=== PATIENT | female | born 1970 | race Caucasian/White ===

== ENCOUNTER 2019-09-23 01:44 | Day surgery (SDC) | payer OTHER, SELFPAY ==
[2019-09-16 14:43] VITALS: BMI 26.6
--- NOTE | 2019-09-23 07:33 | PM.HPGS ---
History of Present Illness History of Present Illness Consent: Risks, benefits, and alternatives have been discussed and questions answered. Patient agrees to proceed with procedure. Chief complaint: abn uterine bleeding, prolapsed fibroid Narrative: Rachelle Caceres is a 49 year old female with prolonged episodes of spotting. Patient cycles have gotten short and light and skipping up to 3 months until recently when she has had onset of prolonged spotting. On exam there is a prolapse fibroid that could not be removed in the office. Recommend removal in the OR with hysteroscopy and D&C. Reviewed risks of infection, bleeding, perforation, and fluid imbalance. Pt. agrees to proceed. [facility] Past Medical History Medical History (Updated 09/23/19 @ 07:39 by Allison Nichole MD) Anxiety Elevated cholesterol Encounter for Essure implantation (normal spontaneous vaginal delivery) x 3 with D&C x 1 for retained placenta Surgical History Surgical History (Updated 09/23/19 @ 07:37 by Allison Nichole MD) S/P LEEP x 2 (1994 and 2014 Social History Social History Smoking status: Never smoker Alcohol intake: never Meds Home Medications and Allergies Home Medications Medication Instructions Recorded Confirmed Type esomeprazole magnesium 40 mg 40 mg PO DAILY #30 cap 08/06/19 09/16/19 Rx capsule,delayed release alprazolam 0.5 mg tablet 0.5 mg PO BID #60 tablet 08/27/19 09/16/19 Rx buspirone 7.5 mg PO BID 09/16/19 09/16/19 History Allergies Allergy/AdvReac Type Severity Reaction Status Date / Time codeine Allergy Unknown NAUSEA/VOMI Verified 09/16/19 14:24 TING Exam Const: General: healthy appearing and alert Orientation/consciousness: patient oriented x3 Resp: Effort & Inspection: normal respiratory effort Auscultation: clear to auscultation bilaterally Cardio: Rate: regular rate Rhythm: regular rhythm GI: GI Palp: Yes Soft to palpation, No Tenderness to palpation present (GI) and No Palpable mass present : External Female Exam: normal external appearance Speculum Exam - Vagina: normal appearance of the vagina and normal vaginal discharge Speculum Exam - Cervix: Cervical mass present (prolapsed 4 cm fibroid) Bimanual exam- vagina & uterus: uterine size normal and consistency normal Bimanual Exam- Adnexa, other: normal adnexae and No adnexal tenderness Neuro: General: patient oriented x3 Assessment and Plan Assessment and plan (1) Fibroids: Code(s): D21.9 - Benign neoplasm of connective and other soft tissue, unspecified Status: Acute Assessment and Plan: prolapsed-plan excision (2) Menorrhagia: Code(s): N92.0 - Excessive and frequent menstruation with regular cycle Status: Acute Assessment and Plan: plan hysteroscopy with D&C (3) Anxiety: Code(s): F41.9 - Anxiety disorder, unspecified Status: Inactive (4) Elevated cholesterol: Code(s): E78.00 - Pure hypercholesterolemia, unspecified Status: Inactive
[2019-09-23 07:53] VITALS: BP 149/101; PULSE 88; RESP 18; TEMP 37; O2SAT 100
[2019-09-23] MEDS: LACTATED RINGERS 1,000 ML 30 ML IV CONT (08:20)
--- NOTE | 2019-09-23 09:01 | P.PNAN_ITS ---
Anes - Initial Pre Proc Eval Procedure: Operation Date: 09/23/19 09:15 Proposed Procedures p Hysteroscopy, Dilation and Curettage - Allison Nichole MD Date/Time: 09/23/19 09:01 Surgeon: Allison Nichole MD Pre Op Diagnosis: abn uterine bleeding, prolapsed fibroid Patient Data Age: 49 Gender: F Height: 5 ft 5 in Weight: 71.5 kg Last Vital Signs Temp 37.0 C 09/23/19 07:53 Pulse 88 09/23/19 07:53 Resp 18 09/23/19 07:53 BP 149/101 H 09/23/19 07:53 Pulse Ox 100 09/23/19 07:53 Allergies Allergy/AdvReac Type Severity Reaction Status Date / Time codeine Allergy Unknown NAUSEA/VOMI Verified 09/23/19 08:26 TING Home Medications Medication Instructions Recorded Confirmed Type esomeprazole magnesium 40 mg 40 mg PO DAILY #30 cap 08/06/19 09/23/19 Rx capsule,delayed release alprazolam 0.5 mg tablet 0.5 mg PO BID #60 tablet 08/27/19 09/23/19 Rx buspirone 7.5 mg PO BID 09/16/19 09/23/19 History Patient hx anesthesia problems: none Family hx anesthesia problems: none [facility] Past Medical History Medical History Anxiety Elevated cholesterol Encounter for Essure implantation (normal spontaneous vaginal delivery) x 3 with D&C x 1 for retained placenta Surgical History Surgical History S/P LEEP x 2 (1994 and 2014 Social History Social History Smoking status: Never smoker Alcohol intake: never Anes - Eval Final PreProcedure Day of Procedure 09/23/19 09:01 Patient weight: overweight Heart: regular rate and rhythm Lungs: clear to auscultation Airway: Mallampati scale class II Neurological: alert and oriented Last oral intake: >/= 8 hours ASA classification: II Emergent: no Anesthetic plan: proceed Anesthesia type and monitoring: general GIVS and standard monitoring Informed Consent: The patient's anesthetic plan and its attendant risks and benefits were discussed with the patient/family/POA. Questions were solicited and answers provided to the satisfaction of the patient/family/POA.
[2019-09-23 09:54] VITALS: BP 126/88; PULSE 83; RESP 12; O2SAT 98
--- NOTE | 2019-09-23 09:54 | PM.OP ---
Procedure Note - Brief Procedure Note - Brief Date of procedure: 09/23/19 Pre-op diagnosis: abn uterine bleeding, prolapsed fibroid Post-op diagnosis: same Procedure performed: myomectomy; hysteroscopy; D&C Anesthesia: MAC and local Surgeon: Allison Nichole MD Estimated blood loss (mL): 5 Drains: No Packing: No Pathology: yes (fibroid; endometrial curettings) Complications: No immediate complications Condition: stable Disposition: PACU Findings: 4 cm prolapsed fibroid appears to have been connected to posterior wall; remainder of endometrium appears grossly normal
[2019-09-23 10:15] VITALS: BP 127/88; PULSE 75
[2019-09-23 10:30] VITALS: BP 134/85; PULSE 56
--- NOTE | 2019-09-24 06:57 | OP_ITS ---
DATE OF PROCEDURE: 09/23/2019 PREOPERATIVE DIAGNOSES: Prolapsed uterine fibroid, menorrhagia. POSTOPERATIVE DIAGNOSES: Prolapsed uterine fibroid, menorrhagia. PROCEDURE: Vaginal myomectomy, hysteroscopy D and C. ANESTHESIA: MAC and local. FINDINGS: There is a 4 cm prolapsed fibroid past the cervical os. The stalk appears to have been attached posteriorly near the left side of the fundus. The remainder of the endometrium appears grossly normal. ESTIMATED BLOOD LOSS: 5 cc. PATHOLOGY: Fibroid with endometrial curettings. DESCRIPTION OF PROCEDURE: The patient was taken to the operating room, placed under anesthesia, prepped and draped in the usual sterile fashion in the dorsal lithotomy position. Bivalved speculum was placed in the vagina. Cervix was grasped on the anterior lip with a tenaculum and injected with 1% lidocaine. The fibroid was grasped with a ring forceps and twisted until the stalk is broken and the fibroid is excised. The cervix was then serially dilated with Hegars. The uterus sounds to 8 cm. The hysteroscope was placed. There was no additional stalk noted. The insertion site does appear visible. The remainder of the endometrium appears normal. There are no other fibroids noted. The hysteroscope was removed. A medium sharp curette was used to sharply curette the endometrium until a good uterine cry was noted in all areas. All instruments were then removed. The patient was taken to Recovery in stable condition. D I MT: [facility]
== END 2019-09-23 10:42 | disposition home or self-care (01) ==
PROVIDERS: PCP Family Medicine; Visit Provider Obstetrics & Gynecology Gynecology
PROC: 0U5B8ZZ Destruction of Endometrium, Via Natural or Artificial Opening Endoscopic (ICD-10-PCS; CPT 58563; principal; 2019-09-23 09:15)
DX: D25.0 Submucous leiomyoma of uterus (principal); N85.8 Other specified noninflammatory disorders of uterus; N93.9 Abnormal uterine and vaginal bleeding, unspecified; E78.00 Pure hypercholesterolemia, unspecified; F41.9 Anxiety disorder, unspecified
CPT/HCPCS: 58145; 58558; 88305; A9270; J2250; J2704; J3010; J7120

== ENCOUNTER 2019-09-26 07:36 | Outpatient (CLI) | payer OTHER, SELFPAY ==
--- NOTE | ~2019-09-26 | MM_ITS ---
EXAMINATION: MM screening [facility] BI w don HISTORY: Screening mammogram TECHNIQUE: Craniocaudal and mediolateral oblique 3-D tomosynthesis images were obtained and synthetic 2-D images were generated. CAD analysis was submitted and interpreted. COMPARISON: 09/20/2018, 09/15/2017, 08/30/2016 BREAST PARENCHYMAL COMPOSITION: The breasts are heterogeneously dense, which may obscure small masses . FINDINGS: There is no evidence of suspicious mass, calcification, or architectural distortion to sugg est malignancy in either breast. There has been no suspicious interval change. IMPRESSION: 1. No mammographic evidence of malignancy. 2. Recommend routine screening mammography in one year. BI-RADS Category 1: Negative Reviewed, dictated and finalized at location A. 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
== END 2019-09-26 07:37 | disposition home or self-care (01) ==
LOC: ANHIMG 07:40
PROVIDERS: PCP Family Medicine; Visit Provider Nurse Practitioner
DX: Z12.31 Encounter for screening mammogram for malignant neoplasm of breast (principal)
CPT/HCPCS: 77063; 77067

== ENCOUNTER 2019-11-15 01:53 | Day surgery (SDC) | payer OTHER, SELFPAY ==
[2019-11-12 13:49] VITALS: BMI 25.7
[2019-11-15 08:32] VITALS: BP 152/103; PULSE 97; RESP 20; TEMP 36.6; O2SAT 97
--- NOTE | 2019-11-15 08:53 | WPDANESEPPF ---
Anes - Initial Pre Proc Eval Procedure: Operation Date: 11/15/19 09:30 Proposed Procedures p Esophagogastroduodenoscopy & Screening Colonoscopy - Byron Palacios MD Date/Time: 11/15/19 08:53 Surgeon: Byron Palacios MD Pre Op Diagnosis: GERD, Neoplasm Screening Patient Data Age: 49 Gender: F Height: 5 ft 5 in Weight: 73.4 kg Last Vital Signs Temp 97.9 F 11/15/19 08:32 Pulse 97 11/15/19 08:32 Resp 20 11/15/19 08:32 BP 152/103 H 11/15/19 08:32 Pulse Ox 97 11/15/19 08:32 Allergies Allergy/AdvReac Type Severity Reaction Status Date / Time codeine AdvReac Unknown NAUSEA/VOMI Verified 11/15/19 08:15 TING Home Medications Medication Instructions Recorded Confirmed Type buspirone 7.5 mg PO BID 09/16/19 11/15/19 History alprazolam 0.5 mg tablet 0.5 mg PO BID #60 tablet 10/31/19 11/15/19 Rx esomeprazole magnesium 40 mg 40 mg PO DAILY #30 cap 10/31/19 11/15/19 Rx capsule,delayed release biotin 1 mg PO DAILY 11/12/19 11/15/19 History ergocalciferol (vitamin D2) 50,000 unit PO 2XW 11/12/19 11/15/19 History [Vitamin D2] Patient hx anesthesia problems: none Family hx anesthesia problems: none PMFSH Social History Social History Smoking status: Never smoker Alcohol intake: never Anes - Eval Final PreProcedure Day of Procedure 11/15/19 08:53 Patient weight: normal Heart: regular rate and rhythm Lungs: clear to auscultation Airway: Mallampati scale class II Neurological: alert and oriented Last oral intake: >/= 8 hours ASA classification: II Emergent: no Anesthetic plan: proceed Anesthesia type and monitoring: general GIVS and standard monitoring Informed Consent: The patient's anesthetic plan and its attendant risks and benefits were discussed with the patient/family/POA. Questions were solicited and answers provided to the satisfaction of the patient/family/POA.
[2019-11-15] MEDS: LACTATED RINGERS 1,000 ML 150 ML IV CONT (08:59)
--- NOTE | 2019-11-15 09:07 | P.HP_ITS ---
History of Present Illness History of Present Illness Consent: Risks, benefits, and alternatives have been discussed and questions answered. Patient agrees to proceed with procedure. Chief complaint: GERD, Neoplasm Screening Narrative: Rachelle Caceres is a 49 year old female was not suffering from indigestion and heartburn for the past 6 months. Three week trial of omeprazole seemed to help somewhat. She also uses [place] regular. Occasionally she may have some nausea. Denies abdominal pain. She is also due for screening colonoscopy. [facility] Past Medical History Medical History Anxiety Elevated cholesterol Encounter for Essure implantation (normal spontaneous vaginal delivery) x 3 with D&C x 1 for retained placenta Surgical History Surgical History S/P LEEP x 2 (1994 and 2014 Social History Social History Smoking status: Never smoker Alcohol intake: never Meds Home Medications and Allergies Home Medications Medication Instructions Recorded Confirmed Type buspirone 7.5 mg PO BID 09/16/19 11/15/19 History alprazolam 0.5 mg tablet 0.5 mg PO BID #60 tablet 10/31/19 11/15/19 Rx esomeprazole magnesium 40 mg 40 mg PO DAILY #30 cap 10/31/19 11/15/19 Rx capsule,delayed release biotin 1 mg PO DAILY 11/12/19 11/15/19 History ergocalciferol (vitamin D2) 50,000 unit PO 2XW 11/12/19 11/15/19 History [Vitamin D2] Allergies Allergy/AdvReac Type Severity Reaction Status Date / Time codeine AdvReac Unknown NAUSEA/VOMI Verified 11/15/19 08:15 TING Vital Signs Vital Signs - 24 hr 11/15/19 08:32 Temperature 36.6 C Pulse Rate 97 Respiratory Rate 20 Blood Pressure 152/103 H Pulse Oximetry 97 Exam Resp: Auscultation: clear to auscultation bilaterally Cardio: Rate: regular rate Rhythm: regular rhythm GI: GI Palp: Yes Soft to palpation and No Tenderness to palpation present (GI) Assessment and Plan Assessment and plan (1) Colon cancer screening: Code(s): Z12.11 - Encounter for screening for malignant neoplasm of colon Status: Acute Assessment and Plan: Colonoscopy with possible biopsy or polypectomy or cautery or injection of substances. (2) GERD (gastroesophageal reflux disease): Code(s): K21.9 - Gastro-esophageal reflux disease without esophagitis Status: Acute Assessment and Plan: EGD with possible biopsy or dilatation or cautery.
[2019-11-15 09:56] VITALS: BP 124/86; PULSE 86; RESP 16; O2SAT 99
[2019-11-15 10:06] VITALS: BP 129/89; PULSE 72; RESP 16; O2SAT 100
--- NOTE | 2019-11-15 10:09 | SUR.PHASEII ---
COVID 19 SHEET GIVEN
[2019-11-15 10:16] VITALS: BP 137/85; PULSE 63; RESP 14; O2SAT 100
== END 2019-11-15 10:34 | disposition home or self-care (01) ==
PROVIDERS: PCP Family Medicine; Visit Provider Internal Medicine Gastroenterology
PROC: 0DJ08ZZ Inspection of Upper Intestinal Tract, Via Natural or Artificial Opening Endoscopic (ICD-10-PCS; CPT 43235; principal; 2019-11-15 09:30)
DX: Z12.11 Encounter for screening for malignant neoplasm of colon (principal); K57.30 Diverticulosis of large intestine without perforation or abscess without bleeding; K21.9 Gastro-esophageal reflux disease without esophagitis; E78.00 Pure hypercholesterolemia, unspecified; F41.9 Anxiety disorder, unspecified
CPT/HCPCS: 45378; 43239; 87081; J2704; J7120

== ENCOUNTER 2020-04-22 07:49 | Outpatient (CLI) | payer OTHER, SELFPAY ==
--- NOTE | ~2020-04-22 | MR_ITS ---
EXAMINATION: MR lumbar spine wo con EXAM DATE: 04/22/2020 08:42 INDICATION: Low back pain. TECHNIQUE: Multi-sequential, multiplanar MR images of the lumbar spine were obtained without contrast . Sagittal T1, T2, T2 fat saturation images. Axial T2 weighted images. Comparison is made to prior examination from 10/03/2010. FINDINGS: Mild to moderate disc disease L4-5 and L5-S1, mild at the upper lumbar levels. The conus me dullaris terminates at the T12-L1 level and has normal signal intensity and morphology. There are no suspicious marrow signal abnormalities. The vertebral bodies are aligned in the AP dimension. Parasp inal soft tissue is unremarkable. Level by level evaluation: T12-L1: Disc does not extend beyond the endplate margin. Facet arthropathy: Mild. Neural foraminal stenosis: No stenosis. Central canal stenosis: No stenosis. L1-L2: There is a mild diffuse disc bulge. Facet arthropathy: Mild. Neural foraminal stenosis: No stenosis. Central canal stenosis: No stenosis. L2-L3: There is a mild diffuse disc bulge. Facet arthropathy: Mild. Neural foraminal stenosis: Mild left. Central canal stenosis: No stenosis. L3-L4: There is a mild to moderate diffuse disc bulge. Facet arthropathy: Mild to moderate. Neural foraminal stenosis: Mild to moderate bilateral. Central canal stenosis: Mild. L4-L5: There is a moderate diffuse disc bulge. Facet arthropathy: Mild to moderate. Neural foraminal stenosis: Mild to moderate bilateral. Central canal stenosis: Mild to moderate. L5-S1: There is a moderate diffuse disc bulge. Facet arthropathy: Mild. Neural foraminal stenosis: Moderate to severe right, moderate left. Central canal stenosis: Mild. Progression lower lumbar spondylosis, and in particular L5-S1 neural foraminal stenosis compared to 2 011. IMPRESSION: 1. L5-S1 moderate to severe right, moderate left neural foraminal stenosis. 2. Otherwise mild to moderate lumbar spondylosis. Reviewed, dictated and finalized at location A.
== END 2020-04-22 07:50 | disposition home or self-care (01) ==
PROVIDERS: PCP Family Medicine; Visit Provider Nurse Practitioner Family
DX: M51.36 Other intervertebral disc degeneration, lumbar region (principal); M47.896 Other spondylosis, lumbar region
CPT/HCPCS: 72148

== ENCOUNTER 2020-07-09 06:54 | Outpatient (NON) | payer OTHER, SELFPAY ==
[2020-07-10 14:52] LABS: SARS-CoV-2 RNA PCR Negative
== END 2020-07-09 06:55 ==
LOC: ANHCOVIDDT 07:10
PROVIDERS: PCP Family Medicine; Visit Provider Family Medicine
DX: R68.89 Other general symptoms and signs (principal); Z20.828 Contact with and (suspected) exposure to other viral communicable diseases
CPT/HCPCS: 87635; C9803; U0003

== ENCOUNTER 2020-10-07 07:57 | Outpatient (CLI) | payer OTHER, SELFPAY ==
--- NOTE | ~2020-10-07 | MM_ITS ---
EXAMINATION: MM screening [facility] BI w don HISTORY: Screening mammogram TECHNIQUE: Craniocaudal and mediolateral oblique 3-D tomosynthesis images were obtained and synthetic 2-D images were generated. CAD analysis was submitted and interpreted. COMPARISON: 09/26/2019, 09/16/2018, 09/15/2017 bilateral digital screening mammogram examinations BREAST PARENCHYMAL COMPOSITION: The breasts are extremely dense, which lowers the sensitivity of mamm ography. FINDINGS: There is asymmetric increased density in the posterior central and inner left breast. Diagn ostic left mammogram is recommended, with ultrasound if required. Otherwise no suspicious mass, architectural distortion, malignant calcification, skin thickening or r etraction or significant new or developing density of either breast is evident. IMPRESSION: 1. Left mammographic asymmetry 2. Diagnostic left mammogram is recommended, with ultrasound if required BI-RADS Category 0: Incomplete: Needs additional imaging evaluation. Reviewed, dictated and finalized at location A. TESTER
== END 2020-10-07 07:58 | disposition home or self-care (01) ==
LOC: ANHIMG 07:59
PROVIDERS: PCP Family Medicine; Visit Provider Nurse Practitioner
DX: Z12.31 Encounter for screening mammogram for malignant neoplasm of breast (principal); R92.8 Other abnormal and inconclusive findings on diagnostic imaging of breast
CPT/HCPCS: 77063; 77067

== ENCOUNTER 2020-10-09 11:13 | Outpatient (CLI) | payer OTHER, SELFPAY ==
--- NOTE | ~2020-10-09 | MMUS_ITS ---
EXAMINATION: MM diagnostic mammo unilat LT, US breast LT complete HISTORY: Left mammographic asymmetry reported on 10/07/2020 bilateral digital screening mammogram TECHNIQUE: Additional 3-D tomosynthesis images of the left breast were performed and synthetic 2-D im ages were generated. CAD analysis was submitted and interpreted. High resolution complete left breast ultrasound was performed. COMPARISON: 10/07/19992010 bilateral digital screening mammogram FINDINGS: MAMMOGRAPHIC FINDINGS: No reproducible mass is evident on these supplemental views. However, the dense heterogeneous stroma may obscure a mass. This reason, complete left breast ultrasound examination was performed. ULTRASOUND: Several subcentimeter simple and septated cysts are identified. No suspicious mass or shadowing is no stefania. IMPRESSION: 1. No mammographic evidence of malignancy 2. Routine annual mammographic screening is recommended. BI-RADS Category 2: Benign finding(s). Reviewed, dictated and finalized at location A. 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 No mammographic evidence of malignancy 2. Routine annual mammographic screening is recommended. BI-RADS Category 2: Benign finding(s).
== END 2020-10-09 11:14 | disposition home or self-care (01) ==
LOC: ANHIMG 11:16
PROVIDERS: PCP Family Medicine; Visit Provider Obstetrics & Gynecology Gynecology
DX: R92.8 Other abnormal and inconclusive findings on diagnostic imaging of breast (principal)
CPT/HCPCS: 76641; 77065

== ENCOUNTER 2022-01-12 11:50 | Outpatient (CLI) | payer OTHER, SELFPAY ==
--- NOTE | ~2022-01-12 | MM_ITS ---
EXAMINATION: MM screening [facility] BI w don HISTORY: Screening mammogram TECHNIQUE: Craniocaudal and mediolateral oblique 3-D tomosynthesis images were obtained and synthetic 2-D images were generated. CAD analysis was submitted and interpreted. COMPARISON: 10/09/2020, 10/07/2020, 09/26/2019, 09/20/2018 BREAST PARENCHYMAL COMPOSITION: The breasts are heterogeneously dense, which may obscure small masses . FINDINGS: There is no suspicious mass, calcification, or architectural distortion to suggest malignan cy in either breast. There has been no suspicious interval change. IMPRESSION: 1. No mammographic evidence of malignancy. 2. Recommend routine screening mammography in one year. BI-RADS Category 1: Negative Reviewed, dictated and finalized at location A.
== END 2022-01-12 11:51 | disposition home or self-care (01) ==
LOC: ANHIMG 11:54
PROVIDERS: PCP Family Medicine; Visit Provider Obstetrics & Gynecology Gynecology
DX: Z12.31 Encounter for screening mammogram for malignant neoplasm of breast (principal)
CPT/HCPCS: 77063; 77067

== ENCOUNTER 2022-11-03 08:28 | Outpatient (CLI) | payer OTHER, SELFPAY ==
--- NOTE | 2022-11-30 12:43 | WPDSLEEPSTUD ---
Sleep Study Date of Study: 11/03/22 Ordering Provider: Bill Kelsey MD Interpreting Physician: Addie Crowell MD Sleep Study Type: Split Polysomnogram Height: 1.65 m Weight: 69.853 kg Body Mass Index: 25.6 Neck Circumference (inches): 13 Allen: 13 Reason for Sleep Study Hypersomnolence Sleep History Rachelle Caceres is a 52-year-old woman with frequent loud snoring and witnessed apneas. She has used nasal strips to help with the snoring. She rarely awakens from sleep feeling short of breath. She occasionally awakens at night with heartburn, belching or coughing. she occasionally has trouble sleeping with a cold. She does not wake up gasping for breath at night. She does not sweat excessively at night. She frequently notices her heart pounding or beating irregularly at night. She occasionally falls asleep during the day, occasionally falls asleep involuntarily but never falls asleep while driving. She does not have loss of muscle tone with strong emotion. She rarely has daytime difficulties due to excessive sleepiness. She does not feel paralyzed on waking or falling asleep. She rarely has vivid dreamlike scenes on waking or falling asleep. She does not feel afraid to go to sleep. She Occasionally has nightmares. She occasionally remembers her dreams. She occasionally has racing thoughts. She occasionally feels sad or depressed. She frequently feels anxiety. She occasionally has muscular tension. She rarely notices parts of her body jerking. She does not kick at night or have crawling or aching feelings in her legs. She rarely has any kind of leg pain at night. She does not have morning jaw pain. She frequently is bothered by pain during the day, occasionally awakened by pain at night. She rarely wakes up feeling stiff in the morning. She occasionally wakes up with sore achy muscles. She frequently has pain in the neck and spine. She has moderate fatigue. She has had no weight change in the last year. She has seasonal allergies, acid reflux and panic attacks. Normal bedtime is between 9:00 p.m. and 10:00 p.m., falling asleep within 15-30 minutes. She wakes up typically 3 times during the night just for a minute or so to go to the bathroom and check on her dog. She is in able to return to sleep quickly. She wakes the morning between 5 and 6:00 a.m.. On weekends bedtime is also 10:00 p.m., she sleeps an hour later, wakes at 7:00 a.m.. She estimates getting 7 hours of sleep at night. She does not take naps in the afternoon or evening. A short nap is not refreshing. Most of the time she feels adequate on waking. She feels better in the morning compared to other times of day. Habits: Quit tobacco 13 years ago. Caffeine 3 cups of coffee per day. No alcohol or recreational substances. [facility] Past Medical History Medical History Adult BMI 25.0-25.9 kg/sq m Anxiety BMI 26.0-26.9,adult Elevated cholesterol Encounter for Essure implantation Fibrosis of uterus (normal spontaneous vaginal delivery) x 3 with D&C x 1 for retained placenta Surgical History Surgical History S/P LEEP x 2 (1994 and 2014 Family History Family History Father No problems noted. Mother COPD (chronic obstructive pulmonary disease) Sibling Diabetes mellitus Social History Social History Smoking status: Former smoker Tobacco type: cigarettes Second hand tobacco smoke exposure: No Smoking end date: 02/24/11 Alcohol intake: never Drinks per week: 1 Substance use: never Substance use type: does not use Living arrangements: with family Additional living arrangements comments: uncle and brother Occupation/Education: occupation Additional occupation/education comments: [employer]
[2022-12-01 11:42] VITALS: BMI 25.6
== END 2022-11-04 06:07 | disposition home or self-care (01) ==
LOC: ANHCSM 08:29
PROVIDERS: PCP Family Medicine; Visit Provider Family Medicine
DX: G47.30 Sleep apnea, unspecified (principal); G47.33 Obstructive sleep apnea (adult) (pediatric)
CPT/HCPCS: 95811

== ENCOUNTER 2023-04-28 08:31 | Outpatient (CLI) | payer OTHER, SELFPAY ==
--- NOTE | ~2023-04-28 | DEXA_ITS ---
Bone Density Report Name: IZABELLA URBANO Age: 52 Sex: Female Ethnicity: White Date of : 1970 Indication: postmenopausal; screening for osteoporosis; parental hip fracture; Referring Provider: YOVANI, PABLITO Study: Bone densitometry was performed. Exam Date: April 28, 2023 Accession number: [id number] Bone Density: Region BMD T-score Z-score Classification AP Spine(L1-L4) 0.956 -0.8 0.2 Normal Femoral Neck (Left) 0.744 -0.9 0.0 Normal Total Hip (Left) 0.875 -0.5 0.1 Normal Femoral Neck (Right) 0.711 -1.2 -0.3 Osteopenia Total Hip (Right) 0.901 -0.3 0.3 Normal Total Hip Mean 0.888 -0.4 0.2 Normal World Health Organization criteria for BMD impression classify patients as: Normal (T-score at or above -1.0), Osteopenia (T-score between -1.0 and -2.5), or Osteoporosis (T-score at or below -2.5). 10-year Fracture Risk(1): Major Osteoporotic Fracture 12% Hip Fracture 0.3% Reported Risk Factors: [place] (), Neck BMD=0.711, BMI=26.1, parental fracture (1) FRAX(R) Version 3.08. Fracture probability calculated for an untreated patient. Fracture probability may be lower if the patient has received treatment. Clinical Information Provided by Patient: Parent has had a hip fracture Has used the following medications: Vitamin D Patient maximum height was 66 Menopause Age: 48 No regular weight bearing exercise Does not regularly consume dairy products Drinks caffeinated beverages Onset of menses at age 13 Number of children 3 Impression: The patient has low bone mass, based on the Right Femoral Neck T-score. The patient has an estimated ten-year risk of hip fracture of 0.3% and an estimated ten-year risk of major fracture of 12%, based on the WHO FRAX algorithm. The patient has risk factors, including: parental hip fracture. Discussion: BONE DENSITY IS LOW AT ONE OR MORE SKELETAL SITES. This patient's lowest T-score is low at one or more skeletal sites. It meets the World Health Organization's (WHO) criteria for ?low bone mass? (T-score between -1.0 and -2.5). The patient's 10-year risk of fracture as calculated by FRAX is less than the threshold where pharmacological therapy is recommended by the National Osteoporosis Foundation (NOF). However, all treatment decisions require clinical judgment and consideration of individual patient factors, including patient preferences, comorbidities, previous drug use, risk factors not captured in the FRAX model (e.g., frailty, falls, vitamin D deficiency, increased bone turnover, interval significant decline in bone density) and possible under or overestimation of fracture risk by FRAX. The patient should follow a healthful lifestyle (good nutrition with adequate calcium and vitamin D, and appropriate weight-bearing exercise).
--- NOTE | ~2023-04-28 | MM_ITS ---
EXAMINATION: MM screening peter BI w don HISTORY: Screening mammogram TECHNIQUE: Craniocaudal and mediolateral oblique 3-D tomosynthesis images were obtained and synthetic 2-D images were generated. CAD analysis was submitted and interpreted. COMPARISON: 01/12/2022, 10/07/2020 BREAST PARENCHYMAL COMPOSITION:The breasts are heterogeneously dense, which may obscure small masses. FINDINGS: No suspicious mass, calcification, or architectural distortion are identified in either chavez ast to suggest malignancy. There has been no suspicious interval change. IMPRESSION: No mammographic evidence of malignancy. Recommend routine screening mammography in one year. BI-RADS Category 1: Negative Reviewed, dictated and finalized at location .
== END 2023-04-28 08:32 | disposition home or self-care (01) ==
LOC: ANHIMG 08:36
PROVIDERS: PCP Family Medicine; Visit Provider Nurse Practitioner
DX: Z12.31 Encounter for screening mammogram for malignant neoplasm of breast (principal); Z78.0 Asymptomatic menopausal state; M85.851 Other specified disorders of bone density and structure, right thigh
CPT/HCPCS: 77063; 77067; 77080

== ENCOUNTER 2023-07-10 15:33 | Outpatient (CLI) | payer OTHER, SELFPAY ==
--- NOTE | ~2023-07-10 | CT_ITS ---
EXAMINATION: CT brain wo/w con DATE: 07/10/2023 16:06 INDICATION: Benign neoplasm of peripheral nerves TECHNIQUE: Computed tomography (CT) of the head was performed without and subsequently with 100 CC Om nipaque 350 intravenous contrast. The mA was adjusted according to patient size. Iterative reconstruc tion technique was employed. Exam dose: 1049.24 mGy-cm total exam DLP. COMPARISON: 05/17/2018 CT brain FINDINGS: No intracranial mass lesion or hemorrhage or cerebrovascular accident, midline shift or mas s effect is detected. Ventricular size is within normal limits. No subdural or epidural hematoma. The mastoid air cells and included paranasal sinuses except for an isolated left ethmoid air cells ar e normally developed and aerated. No fracture or bone destruction of the cranial vault. IMPRESSION: No significant intracranial abnormality Reviewed, dictated and finalized at Location A. Reviewed, dictated and finalized at location B. 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
[2023-07-12 15:32] LABS: Estimated Glomerular Filt Rate > 60
== END 2023-07-10 15:34 ==
PROVIDERS: PCP Otolaryngology; Visit Provider Otolaryngology
DX: D36.10 Benign neoplasm of peripheral nerves and autonomic nervous system, unspecified (principal)
CPT/HCPCS: 36415; 70470; 82565; Q9967

== ENCOUNTER 2023-10-03 15:43 | Outpatient (CLI) | payer OTHER, SELFPAY ==
--- NOTE | ~2023-10-03 | MR_ITS ---
MRI of the lumbar spine Clinical History: Radiculopathy Technique: Axial T2-weighted images, and sagittal T1-weighted, T2-weighted, and T2 fat-sat images wer e acquired. Findings: There is no fracture or subluxation of the lumbar spine. Vertebral bodies maintain normal h eight alignment. No suspicious progressive abnormality seen. At L1-L2, there is no disc bulge or herniation. There is minimal facet arthropathy. No central canal stenosis or neural foraminal narrowing. At L2-L3, there is minimal disc bulge and mild to moderate facet arthropathy. No central canal stenos is or neural foraminal narrowing. At L3-L4, there is mild disc bulge and moderate to advanced facet arthropathy. No central canal steno sis. There is mild bilateral neural foraminal narrowing. At L4-L5, there is disc bulge with probable superimposed central disc protrusion. There is advanced f acet arthropathy. No central canal stenosis. There is moderate left neural foraminal narrowing, and m ild right neural foraminal narrowing. At L5-S1, there is diffuse disc bulge and moderate facet arthropathy. No central canal stenosis. Ther e is severe bilateral neural foraminal compromise, left worse than right. Paravertebral soft tissues are unremarkable. Impression: Moderate degenerative spondylosis, worst at L5-S1, as detailed above. Reviewed, dictated and finalized at location . 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
== END 2023-10-03 15:44 | disposition home or self-care (01) ==
PROVIDERS: PCP Family Medicine
DX: M47.26 Other spondylosis with radiculopathy, lumbar region (principal)
CPT/HCPCS: 72148

== ENCOUNTER 2024-06-25 07:43 | Outpatient (CLI) | payer OTHER, SELFPAY ==
--- NOTE | ~2024-06-25 | MM_ITS ---
EXAMINATION: MM screening peter BI w don HISTORY: Screening mammogram TECHNIQUE: Craniocaudal and mediolateral oblique 3-D tomosynthesis images were obtained and synthetic 2-D images were generated. CAD analysis was submitted and interpreted. COMPARISON: 04/28/2023, 01/12/2022, 10/07/2020 BREAST PARENCHYMAL COMPOSITION:Dense: The breasts are heterogeneously dense, which may obscure small masses. FINDINGS: No suspicious mass, calcification, or architectural distortion are identified in either chavez ast to suggest malignancy. There has been no suspicious interval change. IMPRESSION: No mammographic evidence of malignancy. Recommend routine screening mammography in one year. BI-RADS Category 1: Negative Reviewed, dictated and finalized at location .
== END 2024-06-25 07:44 | disposition home or self-care (01) ==
LOC: ANHIMG 07:44
PROVIDERS: PCP Family Medicine; Visit Provider Nurse Practitioner
DX: Z12.31 Encounter for screening mammogram for malignant neoplasm of breast (principal)
CPT/HCPCS: 77063; 77067

== ENCOUNTER 2025-08-13 07:36 | Outpatient (CLI) | payer OTHER, SELFPAY ==
--- NOTE | ~2025-08-13 | MM_ITS ---
EXAMINATION: MM screening peter BI w don HISTORY: Screening TECHNIQUE: Craniocaudal and mediolateral oblique 3-D tomosynthesis images were obtained and synthetic 2-D images were generated. CAD analysis was submitted and interpreted. COMPARISON: Comparison to multiple prior studies sequentially, with oldest reviewed study dated , 09/20/2018 BREAST PARENCHYMAL COMPOSITION: Dense: The breasts are heterogeneously dense, which may obscure small masses. FINDINGS: There is no evidence of suspicious mass, calcification, or architectural distortion to suggest malignancy in either breast. IMPRESSION: 1. No mammographic evidence of malignancy. 2. Recommend routine screening mammography in one year. BI-RADS Category 1: Negative Reviewed, dictated and finalized at location A. TMAKER
--- OUTSIDE RECORDS SUMMARY | 2025-08-13 07:40 | XMS_ITS | Clinical Summary ---
Author Organization [facility] Address [address] [place], [place] [id number] Care Team Providers Care Soap Maker Name Role Phone Unavailable Primary Care Provider Unavailabl e Social History Tobacco Use Types Packs/Day Years Used Date Smoking Tobacco: Never Assessed Comments Unknown Sex and Gender Information Value Date Recorded Sex Assigned at Not on file Legal Sex Female 7:58 PM CDT Gender Identity Not on file Sexual Orientation Not on file Plan of Treatment Health Maintenance Due Date Last Done Comments Cervical Cancer Screening Pa p Smear (Age 30 to 64) Every 3 Years 1969 Colorectal Cancer Screening Colonoscopy (10 Years) 1969 Annual Physical 1972 Hepatitis C 1987 DTaP, Tdap and Td Vaccines ( 1 - Tdap) 1988 Hepatitis B Vaccines (1 of 3 - 19+ 3-dose series) 1988 Cervical Cancer Screening Pa p with HPV Testing (Age 30 to 64) Every 5 Years 1999 Cervical Cancer Screening with HPV 1999 Mammogram Screening 2009 Pneumococcal Vaccine: 50+ Ye ars (1 of 1 - PCV) 2019 Zoster Vaccines (1 of 2) 2019 COVID-19 Vaccine (2024-2 6 season) 2025 Influenza Adult (#1) 2025 Hepatitis A Vaccines Aged Out No long er eligible based on patient's age to complete this topic Meningococcal B Vaccine Aged Out No l onger eligible based on patient's age to complete this topic Meningococcal Vaccine Aged Out No aiden yunior eligible based on patient's age to complete this topic RSV Immunizations Under 20 Months Aged Out No longer eligible based on patient's age to complete this topic Insurance [facility]
--- OUTSIDE RECORDS SUMMARY | 2025-08-13 07:40 | XMS_ITS | Encounter Summary ---
Author Organization [facility] Address [address] [place] [address] Care Team Providers Care In Service Coordinator Name Role Phone Unavailable Primary Care Provider Unavailabl e Encounter Details Date Type Department Care Team (Late st Contact Info) Description 05/08/2023 Lab Requisition [facility] - DermPath Lab [address] [facility], [place] [phone] Israel Watkins MD [facility] DERMATOLOGY [address] [place] [phone] Melanocytic nevi of other parts of face; Melanocytic nevi of trunk; Other specified erythematous conditions; Other disturbances of skin sensation; Hemorrhage, not elsewhere classified Social History Tobacco Use Types Packs/Day Years Used Date Smoking Tobacco: Never Smokeless Tobacco: Never Alcohol Use Standard Drinks/Week Comments No 0 (1 standard drink = 0.6 oz pur e alcohol) Comments No Sex and Gender Information Value Date Recorded Sex Assigned at Not on file Legal Sex Female 8:23 AM CDT Gender Identity Not on file Sexual Orientation Not on file documented as of this encounter Plan of Treatment Not on file documented as of this encounter Procedures Procedure Name Priority Date/Time Associated Diagnosis Comments DERMATOPATHOLOGY Routine 05/08/2023 3:33 AM CDT Melanocytic nevi of other parts of face Melanocytic nevi of trunk Other specified erythematous conditions Other disturbances of skin sensation Hemorrhage, not elsewhere classified documented in this encounter Results * DERMATOPATHOLOGY (05/08/2023 3:33 AM CDT) Case Report Dermatopathology Report Case: [id number] Authorizing Provider: Israel Watkins MD Collected: 05/08/2023 03:33 AM Ordering Location: [facility] DermPath Lab Received: 05/09/2023 12:47 PM Pathologist: Sveta Dial MD Specimens: A) - Skin, right inferior caodaism B) - Skin, left mid upper back 1:08 PM CDT DERMATOPATHOLOGY LABORATORY Final Diagnosis Specimen A. SKIN, right inferior caodaism: COMPOUND MELANOCYTIC NEVUS (D22.39) Specimen B. SKIN, left mid upper back: INTRADERMAL MELANOCYTIC NEVUS (D22.5) 1:08 PM CDT DERMATOPATHOLOGY LABORATORY at 1308 CDT Clinical History A-B: Irritated Nevus 1:08 PM CDT DERMATOPATHOLOGY LABORATORY Gross Description Specimen A: Received is one formalin filled container labeled with the patients name and designated right inferior caodaism. The specimen consists of a shave removal measuring 4x3x2 mm. Jar 0. Specimen B: Received is one formalin filled container labeled with the patients name and designated left mid upper back. The specimen consists of a shave removal measuring 4x3x1 mm. Jar 0. 1:08 PM CDT DERMATOPATHOLOGY LABORATORY Microscopic Description Specimen A. SKIN, right inferior caodaism: There are nests of melanocytes at the dermal-epidermal junction and within the dermis. Specimen B. SKIN, left mid upper back: There are nests of cytologically bland melanocytes within the dermis that mature with depth. 1:08 PM CDT DERMATOPATHOLOGY LABORATORY Disclaimer An external and internal positive and negative controls are appropriate for the histochemical, immunohistochemical and immunofluorescence stain(s) in this case (if any), except where stated explicitly. The performance characteristics of the stain(s) cited in this report were developed and its performance characteristic determined by the Dermatopathology Laboratory at [facility], directed by Dr. Rachel Carrizales. These tests need not be, and therefore are not, approved by the [place] Food and Drug Administration. The tests are used for clinical purposes. Billing Codes Specimen Charges Stain Charges 96115 26064 1 1 3 1:08 PM CDT DERMATOPATHOLOGY LABORATORY Embedded Images 3 1:08 PM CDT DERMATOPATHOLOGY LABORATORY Pathology/Cytology TISSUE SPECIMEN FROM SKIN / Unknown 05/08/2023 3:33 AM CDT 05/09/2023 12:47 PM CDT Miscellaneous samples (specimen) TISSUE SPECIMEN FROM SKIN / Unknown 05/08/2023 3:33 AM CDT 05/09/2023 12:47 PM CDT us Israel Watkins MD LAB - PATHOLOGY/CYTOLOGY KULDIPE NOEMÍ Final Result DERMATOPATHOLOGY LABORATORY [facility] - Department of Dermatology [facility] Special[facility] Medicine [address] [place] [address], [address] [phone] documented in this encounter Visit Diagnoses Diagnosis Melanocytic nevi of other parts of face Melanocytic nevi of trunk Benign neoplasm of skin of trunk, except scrotum Other specified erythematous conditions Other disturbances of skin sensation Hemorrhage, not elsewhere classified documented in this encounter
--- OUTSIDE RECORDS SUMMARY | 2025-08-13 07:40 | XMS_ITS | Clinical Summary ---
Author Organization [facility] Address [address] [place] [address] Care Team Providers Care Supervisor Sawing And Assembly Name Role Phone Unavailable Primary Care Provider Unavailabl e Source Comments [facility],non-owned Affiliates and Associated Physician Practices is amultiple site organization consisting of ambulatory clinics and hospital sitesin [place], [place], [place] and [place]. This disclosure is being madepursuant to the Care Everywhere program and may not contain all information available regarding this patient. Last updated 18.[facility] [employer] [employer] Allergies Active Allergy Reactions Criticality Noted Date Comments Codeine 09/24/2016 Medications * Be aware that medications may not be up to date on this document. Alwaysverify current medications with the patient. busPIRone (BUSPAR) 7.5 mg one-half tablet Take 10 mg by mouth 3 times daily Active ALPRAZolam (XANAX PO) Active vitamin D, ergocalciferol, (DRISDOL) 1.25 MG (88974 UT) capsule Take 1 capsule by mouth every 7 days Active ondansetron (ZOFRAN) 4 MG tablet Take 1 tablet by mouth every 6 hours as needed for Nausea/Vomit ing 30 tablet 09/06/2019 Active Family History Medical History Relation Name Comments COPD - Chronic Obstructive Pulmonary Disease Mother Asthma Neg Hx Autoimmune Disease Neg Hx Bipolar Disorder Neg Hx Cancer - Breast Neg Hx Cancer - Colon Neg Hx Cancer - Other Neg Hx Cancer - Ovarian Neg Hx Cancer - Pancreatic Neg Hx Cancer - Prostate Neg Hx Depression Neg Hx Eczema Neg Hx Hypertension Neg Hx Migraine Neg Hx Osteoporosis Neg Hx Seizures Neg Hx Sudd. <30 Neg Hx Thyroid Disease Neg Hx Ulcerative Colitis Neg Hx Relation Name Status Comments Father Mother Alive Social History Tobacco Use Types Packs/Day Years Used Date Smoking Tobacco: Never Smokeless Tobacco: Never Tobacco Cessation:Counseling Given: No Alcohol Use Standard Drinks/Week Comments No 0 (1 standard drink = 0.6 oz pur e alcohol) Comments No Sex and Gender Information Value Date Recorded Sex Assigned at Not on file Legal Sex Female 8:23 AM CDT Gender Identity Not on file Sexual Orientation Not on file Last Filed Vital Signs Vital Sign Reading Time Taken Comments Blood Pressure 130/82 01/26/2021 3:48 PM CDT Pulse 80 01/26/2021 3:48 PM CDT Temperature 36.7 C (98.1 F) 01/26/2021 3:48 PM CDT Respiratory Rate 20 01/26/2021 3:48 PM CDT Oxygen Saturation 98% 09/06/2019 3:16 PM PARK MANAGER Inhaled Oxygen Concentration - - Weight 70.3 kg (155 lb) 09/06/2019 3:16 PM PARK MANAGER Height 165.1 cm (5' 5) 09/06/2019 3:16 PM PARK MANAGER Body Mass Index 25.79 09/06/2019 3:16 PM PARK MANAGER Plan of Treatment Health Maintenance Due Date Last Done Comments COLOGUARD (AGES 45-75) - COL ON CA SCREENING 1969 COLON MONITORING 1969 COLONOSCOPY - COLON CA SCREENING 1969 CT COLONOGRAPHY - COLON CA SCREENING 1969 Colorectal Cancer Screening 1969 FIT - COLON CA SCREENING 1969 FLEX SIG - COLON CA SCREENING 1969 LIPID TESTING 1969 MAMMOGRAM 1969 HIV SCREENING 1984 HEPATITIS C SCREENING 04/29/1987 DTAP/TDAP/TD VACCINES (1 - Tdap) 1988 HEPATITIS B VACCINE (1 of 3 - 19+ 3-dose series) 1988 PAP SMEAR 1990 PNEUMOCOCCAL VACCINE 50+ (1 of 1 - PCV) 2019 ZOSTER VACCINE (1 of 2) 2019 DEPRESSION SCREENING 08/28/2024 COVID-19 VACCINE (3 - 2024-2 6 season) 2025 01/12/2021, 12/22/2020 INFLUENZA VACCINE (#1) 2025 06/01/2020 HIB VACCINE Aged Out No longer eligi ble based on patient's age to complete this topic HPV VACCINE Aged Out No longer eligi ble based on patient's age to complete this topic MENINGOCOCCAL (Group B) VACCINE SHARED DECISION-MAKING Aged Out No longer eligible based on patient's age to complete this topic MENINGOCOCCAL GROUPS A/C/Y/W VACCINE Aged Out No longer eligible b ased on patient's age to complete this topic Insurance [employer]
--- OUTSIDE RECORDS SUMMARY | 2025-08-13 07:40 | XMS_ITS | Clinical Summary ---
Author Organization [facility] Address [address] [place] [address] Care Team Providers Care Sludge Mill Operator Name Role Phone Pcp, No Primary Care Provider [phone] Social History Tobacco Use Types Packs/Day Years Used Date Smoking Tobacco: Never Assessed Comments Unknown Sex and Gender Information Value Date Recorded Sex Assigned at Not on file Legal Sex Female 10:02 AM EDT Gender Identity Not on file Sexual Orientation Not on file Plan of Treatment Not on file Medical [place] [id number] Care Teams Sludge Mill Operator Relationship Specialty Start Date End Date Pcp, No PCP - General Family Medicine 03/29/22
--- OUTSIDE RECORDS SUMMARY | 2025-08-13 07:40 | XMS_ITS | Encounter Summary ---
Author Organization [facility] Address [address] [facility] [place] [address] Care Team Providers Care Doughnut Maker Name Role Phone Unavailable Primary Care Provider Unavailabl e Encounter Details Date Type Department Care Team (Late st Contact Info) Description 05/19/2023 Lab Requisition [facility] - DermPath Lab [address] [facility], [place] [phone] Chary Lanier MD [address] [place] [address] [place] [phone] Social History Tobacco Use Types Packs/Day Years [...] Priority Date/Time Associated Diagnosis Comments DERMATOPATHOLOGY Routine 05/18/2023 12:0 0 AM CDT documented in this encounter Results * DERMATOPATHOLOGY (05/18/2023 12:00 AM CDT) Case Report Dermatopathology Report Case: [id number] Authorizing Provider: Chary Lanier MD Collected: 05/18/2023 12:00 AM Ordering Location: [facility] DermPath Lab Received: 05/22/2023 06:27 AM Pathologist: Tiffanie Steele MD Specimen: Skin, left occipital scalp 3 12:14 PM CDT DERMATOPATHOLOGY LABORATORY Final Diagnosis Specimen A. 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 Lymph node 12:14 PM CDT DERMATOPATHOLOGY LABORATORY Gross Description Specimen A: Received is one formalin filled container labeled with the patient's name and designated left occipital scalp. The specimen consists of a 90o63q4 mm piece of skin. The specimen is serially sectioned and a passenger service representative section is submitted in cassette 1. Jar 0. 12:14 PM CDT DERMATOPATHOLOGY LABORATORY Microscopic Description Specimen A. SKIN, left occipital scalp: The specimen is fragmented. Sections show fragments of interlacing bundles of uniform spindle cells focally arranged in parallel rows embedded in a uniform eosinophilic stroma. 12:14 PM CDT DERMATOPATHOLOGY LABORATORY Disclaimer An external and internal positive and negative controls are appropriate for the histochemical, immunohistochemical and immunofluorescence stain(s) in this case (if any), except where stated explicitly. The performance characteristics of the stain(s) cited in this report were developed and its performance characteristic determined by the Dermatopathology Laboratory at [facility], directed by Dr. Rachel Carrizales. These tests need not be, and therefore are not, approved by the [place] Food and Drug Administration. The tests are used for clinical purposes. Billing Codes Specimen Charges Stain Charges 60342 1 12:14 PM CDT DERMATOPATHOLOGY LABORATORY Embedded Images 12:14 PM CDT DERMATOPATHOLOGY LABORATORY Pathology/Cytolog y TISSUE SPECIMEN FROM SKIN / Unknown 05/18/2023 05/22/2023 6:27 AM CDT us Chary Lanier MD LAB - PATHOLOGY/CYTOLOGY ORDERAB LES Final Result DERMATOPATHOLOGY LABORATORY [facility] - Department of Dermatology [address] [phone] documented in this encounter Visit Diagnoses Not on filedocumented in this encounter
== END 2025-08-13 07:37 | disposition home or self-care (01) ==
LOC: ANHFOHIMG 07:38
PROVIDERS: PCP Family Medicine; Visit Provider Nurse Practitioner
DX: Z12.31 Encounter for screening mammogram for malignant neoplasm of breast (principal)
CPT/HCPCS: 77063; 77067